=== PATIENT | male | born 1940 | race Caucasian/White ===

== ENCOUNTER 2025-09-01 10:35 | Observation (INO) | payer MEDICARE ==
[~2025-09-01] VITALS: Ht 167.6 cm; Wt 83.0 kg
--- NOTE | 2025-09-01 10:42 | ERN ---
ED Note History of Present Illness Stated Complaint: FLANK PAIN Chief Complaint: Flank Pain Time Seen by MD: 10:40 Dictation: PATIENT IS AN 84-YEAR-OLD MALE COMING IN TODAY WITH COMPLAINTS OF LEFT FLANK PAIN THAT RADIATES TO LEFT LOWER QUADRANT ONSET WAS FRIDAY. HE DENIES FEVER CHILLS NAUSEA VOMITING. DENIES ANY HISTORY OF PYELONEPHRITIS/UROLITHIASIS OR PANCREATITIS. HE HAS NOT BEEN TO SEE HIS PRIMARY CARE DOCTOR. RATES HIS PAIN 06/19. Allergies: Coded Allergies: Penicillins (Unverified Allergy, Unknown, 09/01/25) Past Medical History RN Note Reviewed/Agreed w/PFSH: Yes Review of System Dictation CONSTITUTIONAL: NEGATIVE EXCEPT FOR HPI HEAD/FACE: NEGATIVE EXCEPT FOR HPI EENT: NEGATIVE EXCEPT FOR HPI RESPIRATORY: NEGATIVE EXCEPT FOR HPI GASTROINTESTINAL/ABDOMINAL: NEGATIVE EXCEPT FOR HPI LEFT FLANK PAIN THAT RADIATES TO LEFT LOWER QUADRANT GENITOURINARY: NEGATIVE EXCEPT FOR HPI MUSCULOSKELETAL: NEGATIVE EXCEPT FOR HPI INTEGUMENTARY: NEGATIVE EXCEPT FOR HPI NEUROLOGICAL/PSYCH: NEGATIVE EXCEPT FOR HPI HEMATOLOGIC/LYMPHATIC: NEGATIVE EXCEPT FOR HPI ALL SYSTEMS NEGATIVE, EXCEPT NOTED ABOVE. 13 POINT REVIEW OF SYSTEMS ASSESSED AND ALL NEGATIVE EXCEPT FOR ABOVE. Initial Vital Sign VS Vital Signs Date Time Temp Pulse Resp B/P (MAP) Pulse Ox O2 Delivery O2 Flow Rate FiO2 09/01/25 10:40 97.2 58 16 150/68 99 0 09/01/25 11:09 Room Air* 21 Physical Exam Dictation VITAL SIGNS REVIEWED GENERAL APPEARANCE: ALERT, ORIENTED X 3, MODERATE ACUTE DISTRESS, WELL DEVELOPED, NOURISHED. HEAD AND FACE: NON-TRAUMATIC. EYES: PERRL, PINK CONJUNCTIVAS, EYELID NO TRAUMA, ANTERIOR CHAMBER WITH ARCUS SENILIS. EARS: PINNAS INTACT AND NO SIGNS OF TRAUMA OR ERYTHEMA EAR CANALS CLEAR AND NO DISCHARGE TM NO ERYTHEMA NOSE: NO DISCHARGE, NO BLEEDING. OROPHARYNX: MOUTH NORMAL, TONGUE PINK, PHARYNX CLEAR,NO ERYTHEMA, TONSILS NO EXUDATES, NO ABSCESSES NOTED, MUCOUS MEMBRANE MOIST NECK: SUPPLE, NON-TENDER, NO THYROMEGALY, NO MASSES, NO JVD, NO BRUITS BREAST:DEFERRED CHEST:NO TENDERNESS, NO CREPITUS, NO PARADOXICAL MOVEMENT, NO RETRACTIONS LUNGS:CLEAR, WELL-VENTILATED, SYMMETRIC, NO RALES, NO WHEEZING, NO RHONCHI, NO STRIDOR, GOOD BREATH SOUNDS BILATERALLY HEART: REGULAR RATE, REGULAR RHYTHM, NO MURMUR, NO GALLOPS VASCULAR: NO PERIPHERAL EDEMA, ABDOMEN: SOFT, POSITIVE BOWEL SOUNDS, NONDISTENDED, NO GUARDING, NONTENDER, NO REBOUND, NO MASSES NO HEPATOMEGALY, NO SPLENOMEGALY, NO CERVANTES'S SIGN, NO HERNIAS. NEGATIVE CVAT BILATERALLY RECTAL: DEFERRED GENITAL: DEFERRED NEUROLOGICAL: NORMAL SPEECH, MOTOR FUNCTION INTACT, SENSORY FUNCTION INTACT MUSCULOSKELETAL: NECK NONTENDER, FULL RANGE OF MOTION, BACK NONTENDER, FULL RANGE OF MOTION, EXTREMITIES: NONTENDER, FULL RANGE OF MOTION SKIN: COLOR PINK, DRY, NO TURGOR, NO RASH, NO LACERATIONS, NO ABRASIONS, NO CONTUSIONS. LYMPHATIC: DEFERRED Results (Laboratory/Radiology) Laboratory/Radiology Laboratory Tests Test 09/01/25 10:37 09/01/25 13:30 White Blood Count 6.0 K/uL (4.8-10.8) Red Blood Count 4.64 MIL/uL (4.50-6.20) Hemoglobin 13.0 g/dL (14.0-18.0) L Hematocrit 38.9 % (42-54) L Mean Corpuscular Volume 83.8 fL (79-99) Mean Corpuscular Hemoglobin 28.0 pg (27.0-33.0) Mean Corpuscular Hemoglobin Concent 33.4 g/dL (32.0-36.0) Red Cell Distribution Width 13.5 % (11.0-15.5) Platelet Count 193 K/uL (130-400) Mean Platelet Volume 10.5 fL (7.5-10.5) Immature Granulocyte % (Auto) 0.3 % (0-1) Neutrophils (%) (Auto) 58.4 % (40.0-77.0) Lymphocytes (%) (Auto) 26.7 % (21.0-51.0) Monocytes (%) (Auto) 6.3 % (3.0-13.0) Eosinophils (%) (Auto) 7.3 % (0.0-8.0) Basophils (%) (Auto) 1.0 % (0.0-5.0) Neutrophils # (Auto) 3.5 K/uL (1.8-7.7) Lymphocytes # (Auto) 1.6 K/uL (1.0-4.8) Monocytes # (Auto) 0.4 K/uL (0.1-1.0) Eosinophils # (Auto) 0.44 K/uL (0.00-0.70) Basophils # (Auto) 0.06 K/uL (0.00-0.20) Absolute Immature Granulocyte (auto 0.02 K/uL (0-1) Nucleated Red Blood Cells 0.0 % (0.0-0.19) Sodium Level 136 mmol/L (136-145) Potassium Level 4.4 mmol/L (3.5-5.1) Chloride Level 99 mmol/L (101-111) L Carbon Dioxide Level 27 mmol/L (21-32) Blood Urea Nitrogen 21 mg/dL (7-18) H Creatinine 1.0 mg/dL (0.5-1.3) Glomerular Filtration Rate Calc 73 mL/min (>90) Random Glucose 183 mg/dL (70-105) H Total Calcium 9.0 mg/dL (8.5-10.1) Lipase 55 U/L (16-77) Urine Color COLORLESS (YELLOW) Urine Appearance CLEAR (CLEAR) Urine pH 6.5 (5.0-8.0) Urine Specific [place] 1.006 (1.001-1.031) Urine Protein NEGATIVE mg/dL (NEGATIVE) Urine Glucose (UA) NEGATIVE mg/dL (NEGATIVE) Urine Ketones NEGATIVE mg/dL (NEGATIVE) Urine Occult Blood NEGATIVE (NEGATIVE) Urine Nitrate NEGATIVE (NEGATIVE) Urine Bilirubin NEGATIVE mg/dL (NEGATIVE) Urine Urobilinogen 0.2 mg/dL (0.2-1.0) Urine Leukocyte Esterase NEGATIVE [place]/uL GALLBLADDER AND BILE DUCTS: The gallbladder appears within normal limits. No radioopaque gallstones are seen. No biliary ductal dilatation is evident. PANCREAS: Diffuse fatty atrophy. SPLEEN: Multiple tiny calcified granulomas in the spleen. ADRENAL GLANDS: Unremarkable. KIDNEYS, URETERS, AND BLADDER: Multiple bilateral hypodense foci largest measuring 4.8 x 4.5 cm on the right side and 5.6 x 5.5 cm on the left side. Tiny hyperdense area measuring 9.0 mm in the left kidney. These may reflect simple and proteinaceous/hemorrhagic cyst; however would be better characterized with ultrasound on a nonemergent basis. Mild bilateral perinephric fat stranding is concerning for renal parenchymal disease. There is no hydronephrosis or hydroureter. No urinary calculi are seen. STOMACH AND BOWEL: Unremarkable appearance of the stomach and bowel. No evidence of bowel obstruction. No evidence suggesting enteritis or colitis. Left-sided inguinal hernia with fat as content. PERITONEUM: No free fluid. No free air. LYMPH NODES: No lymphadenopathy is evident. REPRODUCTIVE: Unremarkable as visualized. VASCULATURE: Atherosclerotic changes in the form of eccentric vessel wall calcification in the abdominal aorta and its major branches. No evidence of abdominal aortic aneurysm. BONES: Pedicle screw fixation at L4-L5 vertebral levels. Mild pseudolisthesis of L4 over L5 vertebra. Degenerative changes in the visualized spine in the form of marginal osteophytes and degenerative discs at multiple lumbar levels. No aggressive appearing osseous lesion. No acute osseous pathology evident. IMPRESSION: 1. Aneurysmal dilatation of the proximal ascending thoracic aorta, measuring up to 4.6 cm. 2. Multiple bilateral renal cysts, largest measuring 4.8 x 4.5 cm on the right and 5.6 x 5.5 cm on the left. 9.0 mm hyperdense focus in the left kidney, possibly representing a proteinaceous or hemorrhagic cyst. 3. Mild bilateral perinephric fat stranding, concerning for renal parenchymal disease. 4. Left-sided inguinal hernia containing fat. 5. No acute osseous abnormalities or other urgent findings. /[facility] Labs Reviewed?: Yes ED Course ED Course Orders Procedure Category Date Status Time Cbc With Differential LAB 09/01/25 Complete 10:40 Urinalysis Profile LAB 09/01/25 Complete 10:40 0.9%Nacl 1000ml (Ns PHA 09/01/25 Complete 1000ml) 11:00 Morphine 2mg Syg PHA 09/01/25 Complete (Morphine 2mg Syg) 11:00 Ondansetron 4mg Inj PHA 09/01/25 Complete (Zofran 4mg Inj) 11:00 Ct Abdomen/Pelvis W/O CT 09/01/25 Resulted Contrast 10:40 Lipase LAB 09/01/25 Complete 10:40 Basic Metabolic Panel LAB 09/01/25 Complete 10:40 Ketorolac PHA 09/01/25 Complete Tromethamine 15mg/Ml 11:30 Levofloxacin 500 PHA 09/01/25 In Process Mg/D5w 100 Ml 13:32 Current Medications Medications (Trade) Dose Ordered Sig/Varsha Route PRN Reason Start Time Stop Time Status Last Admin Dose Admin Ketorolac Tromethamine (toRADol) 15 mg ONCE ONCE IV 09/01/25 11:30 09/01/25 11:31 DC 09/01/25 12:09 Levofloxacin/ Dextrose 100 ml @ 100 mls/hr ONCE STAT IV 09/01/25 13:32 09/01/25 14:31 Morphine Sulfate (morPHINE 2MG SYG) 2 mg ONCE ONCE IVP 09/01/25 11:00 09/01/25 11:01 DC Ondansetron HCl (zoFRAN 4MG INJ) 4 mg ONCE ONCE IVP 09/01/25 11:00 09/01/25 11:01 DC 09/01/25 12:09 Sodium Chloride 1,000 ml @ 0 mls/hr ONCE ONCE IV 09/01/25 11:00 09/01/25 11:01 DC 09/01/25 12:10 Vital Signs Date Time Temp Pulse Resp B/P (MAP) Pulse Ox O2 Delivery O2 Flow Rate FiO2 09/01/25 11:09 98.2 78 20 162/83 97 Room Air* 0 21 09/01/25 10:40 97.2 58 16 150/68 99 0 1330/SPOKE WITH DR. BOSS VASCULAR SURGERY AND REVIEWED CT FINDINGS. HE STATES THAT THIS IS AN INCIDENTAL FINDING ONLY HOWEVER HE RECOMMEND PATIENT FOLLOW BACK UP WITH HIS EDUCATIONAL SPECIALIST'S FOR CONTINUED TO ALL EVALUATIONS, THAT IF IT WAS GREATER THAN 5.5 CM THEN IT WOULD INDICATE A NEED FOR SURGERY. FOLLOW UP OUTPATIENT PER DR. [id number]/ 1415/SPOKE WITH BERNARD PRADHAN HOSPITALIST REVIEWED LABS AND INTERVENTIONS FOR PAIN SHE AGREED TO ADMIT PATIENT. Medical Decision Making MDM MDM: DIFFERENTIAL DIAGNOSIS: ACS/AMI/UROLITHIASIS/PYELONEPHRITIS/YOUR COLIC/P ANCREATITIS/PNEUMONIA/BRONCHITIS RATIONALE: TESTS CONSIDERED AND ORDERED SECONDARY TO SHARED DECISION MAKING INCLUDE: LABS, ECG AND RADIOLOGY PREVIOUS OUTSIDE RECORDS REVIEWED: OLD ER VISITS. RISK OF COMPLICATION AND/OR MORBIDITY OR MORTALITY OF PATIENT MANAGEMENT: NONE MEDICATIONS-PER MEDICATION RECONCILIATION NEED FOR HOSPITALIZATION: PATIENT DOES MEET CRITERIA FOR HOSPITALIZATION. PATIENT WILL BE ADMITTED FOR ACUTE PARENCHYMAL DISEASE AND UROLOGY CONSULTATION INTRACTABLE ABDOMINAL PAIN PRESCRIPTION DRUG MANAGEMENT PRESCRIPTIONS WILL INCLUDE SYMPTOMATIC CARE PATIENT'S PRIOR EXTERNAL MEDICAL RECORDS FROM OTHER ER VISITS WERE REVIEWED BY ME INDICATED. PRIOR TESTING AND RESULTS FROM PREVIOUS VISITS WERE REVIEWED. PRIOR TESTS WERE TAKEN INTO ACCOUNT WITH MEDICAL DECISION MAKING AND RESOURCE UTILIZATION, INDEPENDENT HISTORIAN/HISTORIANS WERE USED TO OBTAIN COMPLETE MEDICAL HISTORY. I INDEPENDENTLY INTERPRETED THE TEST THAT WERE PERFORMED, RESULTS WERE REVIEWED BY ME AND CONSIDERED FINDINGS ON RADIOLOGY IF ORDERED. MEDICAL MANAGEMENT AND EXAMINATION INTERPRETATION DISCUSSIONS WERE HAD BY ME WITH OTHER QUALIFIED HEALTHCARE PROFESSIONALS INDICATED FOR THE PATIENT'S CARE. DX & DISP Disposition: Inpatient Decision to Admit Time: 14:16 Departure Impression: Primary Impression: Intractable abdominal pain Additional Impressions: Parenchymal disease of kidney, Hypochloremia, Uncontrolled diabetes mellitus, Aortic aneurysm Condition: Stable Time of Disposition: 14:16 I have reviewed the case, and I agree with, Diagnosis and Plan UTE ALONSO Sep 01, 2025 10:42
[2025-09-01 10:56] LABS: IMMATURE GRANULOCYTE ABSOLUTE 0.02 K/uL (0-1); NUCLEATED RED BLOOD CELLS 0.0 % (0.0-0.19); PLATELET COUNT (AUTO) 193 K/uL (130-400); RED BLOOD CELL COUNT(AUTO) 4.64 MIL/uL (4.50-6.20); RED CELL DISTRIBUTION WIDTH 13.5 % (11.0-15.5); WHITE BLOOD COUNT (AUTO) 6.0 K/uL (4.8-10.8)
[2025-09-01 11:11] LABS: CREATININE 1.0 mg/dL (0.5-1.3); GLOMERULAR FILTR. RATE CALC 73.0 mL/min (>90); GLUCOSE,RANDOM 183.0 mg/dL (70-105); SODIUM SERUM 136.0 mmol/L (136-145); UREA NITROGEN, BLOOD 21.0 mg/dL (7-18)
[2025-09-01] MEDS: 0.9%NACL 1000ML 1,000 ML IV ONE (12:10)
--- NOTE | 2025-09-01 12:18 | HMCIMG ---
EXAM: CT Abdomen and Pelvis Without IV contrast CLINICAL HISTORY: LEFT FLANK PAIN THAT RADIATES TO LEFT LOWER QUADRANT TECHNIQUE: Axial computed tomography images of the abdomen and pelvis without intravenous contrast. CONTRAST: No IV contrast. COMPARISON: None provided. FINDINGS: LUNG BASES: Mild centrilobular and paraseptal emphysematous changes in the right lower lobe. No pleural effusions are seen. Atherosclerosis of the coronary arteries and thoracic aorta. Aneurysmal dilatation of the proximal ascending thoracic aorta, measuring up to 4.[address] angiography of the chest for further evaluation. LIVER: Few tiny hypodense areas in the subcapsular region of the bilateral lobes. Suggested USG on a non-emergency basis. GALLBLADDER AND BILE DUCTS: The gallbladder appears within normal limits. No radioopaque gallstones are seen. No biliary ductal dilatation is evident. PANCREAS: Diffuse fatty atrophy. SPLEEN: Multiple tiny calcified granulomas in the spleen. ADRENAL GLANDS: Unremarkable. KIDNEYS, URETERS, AND BLADDER: Multiple bilateral hypodense foci largest measuring 4.8 x 4.5 cm on the right side and 5.6 x 5.5 cm on the left side. Tiny hyperdense area measuring 9.0 mm in the left kidney. These may reflect simple and proteinaceous/hemorrhagic cyst; however would be better characterized with ultrasound on a nonemergent basis. Mild bilateral perinephric fat stranding is concerning for renal parenchymal disease. There is no hydronephrosis or hydroureter. No urinary calculi are seen. STOMACH AND BOWEL: Unremarkable appearance of the stomach and bowel. No evidence of bowel obstruction. No evidence suggesting enteritis or colitis. Left-sided inguinal hernia with fat as content. PERITONEUM: No free fluid. No free air. LYMPH NODES: No lymphadenopathy is evident. REPRODUCTIVE: Unremarkable as visualized. VASCULATURE: Atherosclerotic changes in the form of eccentric vessel wall calcification in the abdominal aorta and its major branches. No evidence of abdominal aortic aneurysm. BONES: Pedicle screw fixation at L4-L5 vertebral levels. Mild pseudolisthesis of L4 over L5 vertebra. Degenerative changes in the visualized spine in the form of marginal osteophytes and degenerative discs at multiple lumbar levels. No aggressive appearing osseous lesion. No acute osseous pathology evident. IMPRESSION: 1. Aneurysmal dilatation of the proximal ascending thoracic aorta, measuring up to 4.6 cm. 2. Multiple bilateral renal cysts, largest measuring 4.8 x 4.5 cm on the right and 5.6 x 5.5 cm on the left. 9.0 mm hyperdense focus in the left kidney, possibly representing a proteinaceous or hemorrhagic cyst. 3. Mild bilateral perinephric fat stranding, concerning for renal parenchymal disease. 4. Left-sided inguinal hernia containing fat. 5. No acute osseous abnormalities or other urgent findings. /[place]
[2025-09-01 13:40] LABS: APPEARANCE,URINE CLEAR (CLEAR); GLUCOSE, URINE (UA) NEGATIVE (NEGATIVE); LEUKOCYTE ESTERASE ,URINE NEGATIVE Leu/uL (NEGATIVE); NITRATE,URINE NEGATIVE (NEGATIVE); OCCULT BLOOD,URINE NEGATIVE (NEGATIVE)
[2025-09-01 13:43] LABS: ADD UA MICROSCOPIC NO
--- NOTE | 2025-09-01 15:04 | NUR ---
DCP: HOME sw met with pt and son Danilo Rasmussen [phone]. Pt lives independently at home with his william Soto [phone]. Pt states he completes his ADLS on his own, uses a shower chair at home. Has no HH or HD services. PCP is Randi Pickens and uses the [facility] or [facility] for rx needs. Pt denies need for SNF, [place] at [place] Addendum: 09/01/25 at 1511 by ALEA QUEEN SS Amended: Links added.
[2025-09-01] MEDS ORDERED: MAGNESIUM 2GM PREMIX 50ML 50 ML IV PRN (15:30)
[2025-09-01] MEDS ORDERED: GLUCAGON 1MG KIT 1 MG ML IM PRN (15:30)
[2025-09-01] MEDS ORDERED: DEXTROSE 50%-WATER 50 ML DISP.SYRIN IV PRN (15:30)
--- NOTE | 2025-09-01 15:43 | HP ---
[facility] HISTORY AND PHYSICAL Date of Service: Sep 01, 2025 Time of Service: 15:34 HISTORY OF PRESENT ILLNESS: [The patient is an 84-year-old male presenting with left flank pain that began on Friday morning. The pain radiates to the left lower quadrant. He denies taking any medications for the pain. He reports no associated fever, chills, nausea, or vomiting. No dysuria, hematuria, or urinary frequency. No recent trauma or heavy lifting. No prior similar episodes. ] REVIEW OF SYSTEMS CONSTITUTIONAL: Denies fevers, chills, or night sweats. No unintentional weight loss reported. NEUROLOGICAL: Denies headache, amaurosis fugax, motor weakness, sensory deficit, vertigo/spinning sensation, gait abnormalities, or tremors. ENT: No hearing loss, otalgia, otorrhea, rhinitis, rhinorrhea, hoarseness, or sore throat. CARDIOVASCULAR: Denies any exertional angina, dyspnea on exertion, orthopnea, paroxysmal nocturnal dyspnea, palpitations, life-threatening arrhythmias, claudication. PULMONARY: Denies any shortness of breath, cough, phlegm/sputum, hemoptysis, pleuritic chest pain. SLEEP: Denies morning headaches, daytime somnolence or napping. Denies difficulty falling asleep, staying asleep, waking from sleep. Denies knowledge of snoring. GASTROINTESTINAL: Denies any type of dysphagia to either liquids or solids. Denies nausea, vomiting, pyrosis, early satiety, abdominal pain, diarrhea, constipation, or changes in stool consistency or caliber. Denies coffee-ground emesis, hematemesis, hematochezia, or melanotic stools. GENITOURINARY: Denies frequency, urgency, nocturia, hematuria or incontinence (Storage/Irritative symptoms.) Low urinary stream, straining to void, urinary intermittency or hesitancy, splitting of the voiding stream, terminal dribbling. ENDOCRINOLOGIC: Denies polyuria, polydipsia, polyphagia or heat/cold intolerances. HEMATOLOGIC: Denies thrombophilia/previous clots, or coagulopathy/bleeding disorders. ONCOLOGIC: Denies personal history of malignancy. DERMATOLOGIC: Denies rashes or pruritus. PSYCHIATRIC: Denies any suicidal or homicidal ideation. Denies hallucinations. PAST MEDICAL HISTORY: [Coronary artery disease Diabetes mellitus Hypertension Osteoarthritis Skin cancer ] PAST SURGICAL HISTORY: [ Tonsillectomy Right knee surgery Bilateral shoulder surgery Skin cancer excisions (nose, lips) Cataract surgery Left elbow I&D ] PAST SOCIAL HISTORY: [Retired Denies alcohol abuse Former smoker (age [age]) Denies illicit drug us ] FAMILY HISTORY: [ Skin cancer ] Coded Allergies: Penicillins (Unverified Allergy, Unknown, 09/01/25) PHYSICAL EXAM GENERAL APPEARANCE: The patient is awake, alert, and oriented, in no acute cardiopulmonary distress. NEUROLOGICAL: Cranial nerves II-XII grossly intact. Motor is 5/5 in bilateral upper and lower extremities proximal to distal. No sensory deficits. HEENT: Face is symmetric. Pupils are equal and reactive. Extraocular movements are intact. NECK: Supple. No JVD. No thyromegaly. No submental, submandibular, pre- /postauricular, occipital or supraclavicular lymphadenopathy. CHEST: Normal chest expansion. No Telemetry. LUNGS: Absence of any rales, rhonchi or any wheezing. CARDIOVASCULAR: Regular. S1 and S2 normal. No appreciable rubs, murmurs or gallops. ABDOMEN: Soft, nontender, and nondistended. There is no rebound, voluntary guarding, or rigidity. : Deferred. No [place]. EXTREMITIES: Non-edematous and not cyanotic. No clubbing. Good capillary refill. SKIN: No skin breakdown. Vital Sign (Last 24 Hours) 09/01/25 11:09 Temp 98.2 Pulse 78 Resp 20 B/P (MAP) 162/83 Pulse Ox 97 O2 Delivery Room Air* O2 Flow Rate 0 FiO2 21 LABS: Laboratory: Test 09/01/25 13:30 09/01/25 10:37 Range/Units Urine Color COLORLESS YELLOW Urine Appearance CLEAR CLEAR Urine pH 6.5 5.0-8.0 Urine Specific [place] 1.006 1.001-1.031 Urine Protein NEGATIVE NEGATIVE mg/dL Urine Glucose (UA) NEGATIVE NEGATIVE mg/dL Urine Ketones NEGATIVE NEGATIVE mg/dL Urine Occult Blood NEGATIVE NEGATIVE Urine Nitrate NEGATIVE NEGATIVE Urine Bilirubin NEGATIVE NEGATIVE mg/dL Urine Urobilinogen 0.2 0.2-1.0 mg/dL Urine Leukocyte Esterase NEGATIVE NEGATIVE [place]/uL White Blood Count 6.0 4.8-10.8 K/uL Red Blood Count 4.64 4.50-6.20 MIL/uL Hemoglobin 13.0 L 14.0-18.0 g/dL Hematocrit 38.9 L 42-54 % Mean Corpuscular Volume 83.8 79-99 fL Mean Corpuscular Hemoglobin 28.0 27.0-33.0 pg Mean Corpuscular Hemoglobin Concent 33.4 32.0-36.0 g/dL Red Cell Distribution Width 13.5 11.0-15.5 % Platelet Count 193 130-400 K/uL Mean Platelet Volume 10.5 7.5-10.5 fL Immature Granulocyte % (Auto) 0.3 0-1 % Neutrophils (%) (Auto) 58.4 40.0-77.0 % Lymphocytes (%) (Auto) 26.7 21.0-51.0 % Monocytes (%) (Auto) 6.3 3.0-13.0 % Eosinophils (%) (Auto) 7.3 0.0-8.0 % Basophils (%) (Auto) 1.0 0.0-5.0 % Neutrophils # (Auto) 3.5 1.8-7.7 K/uL Lymphocytes # (Auto) 1.6 1.0-4.8 K/uL Monocytes # (Auto) 0.4 0.1-1.0 K/uL Eosinophils # (Auto) 0.44 0.00-0.70 K/uL Basophils # (Auto) 0.06 0.00-0.20 K/uL Absolute Immature Granulocyte (auto 0.02 0-1 K/uL Nucleated Red Blood Cells 0.0 0.0-0.19 % Sodium Level 136 136-145 mmol/L Potassium Level 4.4 3.5-5.1 mmol/L Chloride Level 99 L 101-111 mmol/L Carbon Dioxide Level 27 21-32 mmol/L Blood Urea Nitrogen 21 H 7-18 mg/dL Creatinine 1.0 0.5-1.3 mg/dL Glomerular Filtration Rate Calc 73 >90 mL/min Random Glucose 183 H 70-105 mg/dL Total Calcium 9.0 8.5-10.1 mg/dL Lipase 55 16-77 U/L Current Medications Medications (Trade) Dose Ordered Sig/Varsha Route PRN Reason Start Time Stop Time Status Last Admin Dose Admin Dextrose (D50w) 50 ml AD PRN IV HYPOGLYCEMIA PROTOCOL 09/01/25 15:30 10/01/25 15:29 Glucagon (Glucagon 1mg Kit) 1 mg AD PRN IM HYPOGLYCEMIA PROTOCOL 09/01/25 15:30 10/01/25 15:29 Insulin Human Regular (humuLIN R 100 UNIT/ML 3ML) INSULIN SLIDING SCAL... ACHS SQ 09/01/25 16:30 10/01/25 16:29 Levofloxacin/ Dextrose 100 ml @ 100 mls/hr ONCE STAT IV 09/01/25 13:32 09/01/25 14:31 DC 09/01/25 14:25 100 MLS/HR Magnesium Sulfate 50 ml @ 0 mls/hr PROTOCOL PRN IV MAGNESIUM PROTOCOL 09/01/25 15:30 10/01/25 15:29 DIAGNOSTICS / RADIOLOGY: [IMAGING: CT Abdomen/Pelvis without contrast (09/01/2025): Aneurysmal dilatation of the proximal ascending thoracic aorta (4.6 cm) Multiple bilateral renal cysts (largest: 4.8 x 4.5 cm right, 5.6 x 5.5 cm left) 9 mm hyperdense focus in left kidney, possibly proteinaceous or hemorrhagic cyst Mild bilateral perinephric fat stranding, concerning for renal parenchymal disease No hydronephrosis, hydroureter, or urinary calculi Left-sided inguinal hernia with fat content Mild emphysematous changes in right lower lobe Degenerative changes in lumbar spine, L4-L5 pedicle screw fixation ] ASSESSMENT: [1. Left flank pain, radiating to left lower quadrant: No evidence of nephrolithiasis or hydronephrosis on imaging. Multiple bilateral renal cysts, including a hyperdense left renal cyst, and mild perinephric fat stranding suggest possible renal parenchymal disease or cyst- related discomfort. Musculoskeletal pain remains a consideration, especially with degenerative spine changes and history of osteoarthritis. No acute intra-abdominal or osseous pathology identified. 2. Incidental findings: Ascending thoracic aortic aneurysm (4.6 cm): Outpatient vascular surgery or cardiology referral for further evaluation (CT angiography recommended). ER provider spoke with Dr. Huggins, for now just monitor closely. Left inguinal hernia with fat content: No acute findings, monitor for symptoms. Multiple renal cysts: Recommend renal/bladder ultrasound for further characterization on a non-emergent basis. Mild emphysematous changes in right lower lobe: No acute pulmonary findings. 3. Chronic comorbidities: Coronary artery disease, diabetes, hypertension, osteoarthritis, history of skin cancer. ] PLAN: [Admit to medical floor Patient can have heart healthy diet Laboratory studies: Urinalysis with microscopy, Basic metabolic panel, CBC Imaging: Renal/bladder ultrasound (outpatient, non-emergent) for further cyst characterization Outpatient CT angiography of the chest for thoracic aortic aneurysm evaluation Symptom management: Acetaminophen for pain control. Encourage oral hydration as tolerated Monitoring: Monitor for new or worsening symptoms (fever, hematuria, dysuria, worsening pain, hernia symptoms). Monitor blood glucose and blood pressure Consultations: Outpatient vascular surgery or cardiology for aortic aneurysm. Urology referral if renal cysts become symptomatic or if ultrasound suggests complexity Patient education: Educate on signs/symptoms of aortic aneurysm complications, hernia incarceration, and renal cyst complications. Advise to seek care for acute changes Follow-up: Arrange outpatient follow-up for imaging and specialty referrals Continue home medications FULL CODE ADVANCED CARE PLANNING 1. Which of the following were discussed? Hospice Care - Yes / No Therapeutic options - Yes / No Advance Directives - Yes / No Other discussions - 2. Discussed with who? Patient 3. Voluntary nature of this service was explained to the patient? Yes / No 4. Amount of time spent - _20 mins 5. Reviewed by Physician? (if this service was performed by NPP) Yes / No ] ATTESTATION BY PHYSICIAN I have seen and examined the patient. I reviewed the documentation, medical decision making, and treatment plan as noted by the mid-level provider above. I agree with the findings and plan of care. GAMALIEL RODRIGUEZ MD, [facility] Sep 01, 2025 15:43
[2025-09-01 18:33] VITALS: O2SAT 97
[2025-09-01] MEDS ORDERED: SOTA80TA PO (19:14)
[2025-09-01] MEDS ORDERED: SOTA150V IV (19:14)
[2025-09-01] MEDS ORDERED: FURO20TA4 PO (19:14)
[2025-09-01] MEDS ORDERED: FOSI40TA71 PO (19:14)
[2025-09-01] MEDS ORDERED: AMLO-258 PO (19:14)
[2025-09-01] MEDS ORDERED: METF-444 PO (19:14)
[2025-09-01] MEDS ORDERED: ASPI-1197 PO (19:14)
[2025-09-01] MEDS ORDERED: SIMV-43 PO (19:14)
[2025-09-01] MEDS ORDERED: CHOL2000 PO (19:16)
[2025-09-01 20:00] VITALS: BP 133/80; PULSE 74; RESP 18
[2025-09-01] MEDS ORDERED: LISI40TA15 PO (21:38)
[2025-09-01] MEDS: LISINOPRIL 40 MG TABLET PO SCH (21:47)
[2025-09-02] VITALS: BP 117/64; PULSE 58; RESP 17
[2025-09-02 04:00] VITALS: BP 110/74; PULSE 52; RESP 17; TEMP 97.8
[2025-09-02 04:44] LABS: NUCLEATED RED BLOOD CELLS 0.0 % (0.0-0.19); PLATELET COUNT (AUTO) 143.0 K/uL (130-400); RED BLOOD CELL COUNT(AUTO) 3.46 MIL/uL (4.50-6.20); RED CELL DISTRIBUTION WIDTH 15.6 % (11.0-15.5); WHITE BLOOD COUNT (AUTO) 5.2 K/uL (4.8-10.8)
[2025-09-02 05:09] LABS: ASPARTATE AMINOTRANSFERASE 19.0 U/L (10-37); CREATININE 1.1 mg/dL (0.5-1.3); GLOMERULAR FILTR. RATE CALC 65.0 mL/min (>90); GLUCOSE,RANDOM 99.0 mg/dL (70-105); SODIUM SERUM 138.0 mmol/L (136-145); TOTAL PROTEIN, SERUM 5.8 g/dL (6.0-8.3); UREA NITROGEN, BLOOD 23.0 mg/dL (7-18)
[2025-09-02 08:00] VITALS: BP 118/60; PULSE 62; RESP 16; TEMP 98
[2025-09-02] MEDS ORDERED: LISINOPRIL 40 MG TABLET PO SCH (08:30)
[2025-09-02] MEDS: CHOLECALCIFEROL PO SCH (09:00)
[2025-09-02] MEDS: ASPIRIN 325MG TAB PO SCH (09:19)
[2025-09-02] MEDS: amLODIPine 5 MG TAB PO SCH (09:20)
[2025-09-02 09:27] VITALS: O2SAT 97
[2025-09-02] MEDS: LIDOCAINE 4% ADH..PATCH TP ONE (11:31)
[2025-09-02 12:00] VITALS: BP 137/78; PULSE 65; RESP 17; TEMP 97.8
[2025-09-02] MEDS ORDERED: BACL10TA PO (13:00)
[2025-09-02] MEDS: BACLOFEN 10 MG TABLET PO SCH (14:00)
--- NOTE | 2025-09-02 14:15 | NUR ---
DISCHARGED PATIENT WAS EDUCATED ON NEW MEDICATION UPON DISCHARGED. PATIENT VERBALIZED UNDERSTANDING. IV WAS REMOVED WITHOUT COMPLICATIONS. PATIENT VERBALIZED NOT NEEDING FURTHER ASSISTANCE. PT WAS TRANSPORTED TO MAIN ENTRANCE VIA W/C BY RN CHEMICAL DEPENDENCY. NO S/S OF DISTRESS.
--- NOTE | 2025-09-02 15:49 | DS ---
Discharge Summary Hospital Course Summary: The patient is an 84-year-old male with past medical history of coronary artery disease, diabetes mellitus, hypertension, osteoarthritis and skin cancer. The patient came with complaint of left lower abdominal pain that started on Friday. According the patient, the pain initially started at the back which he consider was the usual back pain the patient has but gradually the pain worsened and radiated to the left lower quadrant that prompted him to come to the ER. The pain was not associated with fever, chills, vomiting, nausea, diarrhea, dysuria, frequency, urgency, constipation, chest pain, shortness of breath. 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 Multiple bilateral renal cysts, largest measuring 4.8 x 4.5 cm on the right and 5.6 x 5.5 cm on the left. 9.0 mm hyperdense focus in the left kidney, possibly representing a proteinace ous or hemorrhagic cyst. As per the patient's history and physical note, the ER providers contacted the fruit packer was recommended to monitor the patient closely for the aortic aneurysm. Today the patient was seen and examined. The patient complained of no pain as of today and was able to walk, eat, urinate and defecate. The patient complained of slight pain on the left lower quadrant, mainly on the back after which the patient was given a lidocaine patch and baclofen. The patient was educated regarding the CT findings with recommendations to follow up with Cardiology and Urology for a possible renal/bladder ultrasound for further assistance catheterization and possible CT Angiography for the ascending thoracic aortic aneurysm (4.6 cm). The patient responded with the understanding of these recommendations. On discharge the patient was stable and was complaining of no pain. He was discharged with baclofen t.i.d. Procedure(s): IMAGING REPORT Signed PATIENT: JAZMINE MAYORGA MR#: [id number] : 1940 SEX: M AGE: 84 LOCATION: [facility] ORDER [id number] STATUS: REG ER REPORT#: [id number] SERVICE [id number] REASON: LEFT FLANK PAIN THAT RADIATES TO LEFT LOWER QUADRANT ORDERING PHYSICIAN: RHEINER,UTE P BEAMER HELPER PROCEDURE: ABD PEL WO - CT ABDOMEN/PELVIS W/O CONTRAST EXAM: CT Abdomen and Pelvis Without IV contrast CLINICAL HISTORY: LEFT FLANK PAIN THAT RADIATES TO LEFT LOWER QUADRANT TECHNIQUE: Axial computed tomography images of the abdomen and pelvis without intravenous contrast. CONTRAST: No IV contrast. COMPARISON: None provided. FINDINGS: LUNG BASES: Mild centrilobular and paraseptal emphysematous changes in the right lower lobe. No pleural effusions are seen. Atherosclerosis of the coronary arteries and thoracic aorta. Aneurysmal dilatation of the proximal ascending thoracic aorta, measuring up to 4.[address] angiography of the chest for further evaluation. LIVER: Few tiny hypodense areas in the subcapsular region of the bilateral lobes. Suggested USG on a non-emergency basis. GALLBLADDER AND BILE DUCTS: The gallbladder appears within normal limits. No radioopaque gallstones are seen. No biliary ductal dilatation is evident. PANCREAS: Diffuse fatty atrophy. SPLEEN: Multiple tiny calcified granulomas in the spleen. ADRENAL GLANDS: Unremarkable. KIDNEYS, URETERS, AND BLADDER: Multiple bilateral hypodense foci largest measuring 4.8 x 4.5 cm on the right side and 5.6 x 5.5 cm on the left side. Tiny hyperdense area measuring 9.0 mm in the left kidney. These may reflect simple and proteinaceous/hemorrhagic cyst; however would be better characterized with ultrasound on a nonemergent basis. Mild bilateral perinephric fat stranding is concerning for renal parenchymal disease. There is no hydronephrosis or hydroureter. No urinary calculi are seen. STOMACH AND BOWEL: Unremarkable appearance of the stomach and bowel. No evidence of bowel obstruction. No evidence suggesting enteritis or colitis. Left-sided inguinal hernia with fat as content. PERITONEUM: No free fluid. No free air. LYMPH NODES: No lymphadenopathy is evident. REPRODUCTIVE: Unremarkable as visualized. VASCULATURE: Atherosclerotic changes in the form of eccentric vessel wall calcification in the abdominal aorta and its major branches. No evidence of abdominal aortic aneurysm. BONES: Pedicle screw fixation at L4-L5 vertebral levels. Mild pseudolisthesis of L4 over L5 vertebra. Degenerative changes in the visualized spine in the form of marginal osteophytes and degenerative discs at multiple lumbar levels. No aggressive appearing osseous lesion. No acute osseous pathology evident. IMPRESSION: 1. Aneurysmal dilatation of the proximal ascending thoracic aorta, measuring up to 4.6 cm. 2. Multiple bilateral renal cysts, largest measuring 4.8 x 4.5 cm on the right and 5.6 x 5.5 cm on the left. 9.0 mm hyperdense focus in the left kidney, possibly representing a proteinaceous or hemorrhagic cyst. 3. Mild bilateral perinephric fat stranding, concerning for renal parenchymal disease. 4. Left-sided inguinal hernia containing fat. 5. No acute osseous abnormalities or other urgent findings. /[place] DICTATED BY: NADIA YOU Jr., MD DATE: 09/01/251316 ELECTRONICALLY SIGNED BY: NADIA YOU Jr., MD DATE: 09/01/251316 Assessment/Plan: ASSESSMENT: [1. Left flank pain, radiating to left lower quadrant: No evidence of nephrolithiasis or hydronephrosis on imaging. Multiple bilateral renal cysts, including a hyperdense left renal cyst, and mild perinephric fat stranding suggest possible renal parenchymal disease or cyst- related discomfort. Musculoskeletal pain remains a consideration, especially with degenerative spine changes and history of osteoarthritis. No acute intra-abdominal or osseous pathology identified. 2. Incidental findings: Ascending thoracic aortic aneurysm (4.6 cm): Outpatient vascular surgery or cardiology referral for further evaluation (CT angiography recommended). ER provider spoke with Dr. Huggins, for now just monitor closely. Left inguinal hernia with fat content: No acute findings, monitor for symptoms. Multiple renal cysts: Recommend renal/bladder ultrasound for further characterization on a non-emergent basis. Mild emphysematous changes in right lower lobe: No acute pulmonary findings. Discharge Instructions: *Follow up with your primary care physician in 2 - 3 days after discharge. *Follow up with Cardiology for thoracic aortic aneurysm of 4.6 cm *Follow up with Urology for renal cysts *Continue all medications as prescribed. Do not discontinue or change dosages without consulting your PCP. *Gradually resume normal activities as tolerated. *Continue a balanced diet . Reduce salt intake to help manage BP. *Seek immediate medical attention if you experience chest pain, SOB or severe headache. Home Medications: Active Scripts Baclofen (Baclofen) 10 Mg Tablet, 1 TAB PO TID for 30 Days, #90 TAB 0 Refills Prov:NAT YANES MD 09/02/25 Reported Medications Lisinopril (Lisinopril) 40 Mg Tablet, 40 TAB PO ONCE for 30 Days, #30 TAB 0 Refills 09/01/25 Cholecalciferol (Vitamin D3) (Vitamin D3) 50 Mcg (2000 Unit) Capsule, 1 CAP PO DAILY for 30 Days, #30 CAP 0 Refills 09/01/25 Simvastatin (Simvastatin) 20 Mg Tablet, 20 MG PO HS, TAB 09/01/25 Fosinopril Sodium (Fosinopril Sodium) 40 Mg Tablet, 1 TAB PO BID for 30 Days, #30 TAB 0 Refills 09/01/25 Sotalol HCl (Sotalol) 80 Mg Tablet, 40 MG PO BID, TAB 09/01/25 Amlodipine Besylate (Amlodipine Besylate) 10 Mg Tablet, 10 MG PO DAILY for 30 Days, #30 TAB 0 Refills 09/01/25 Metformin HCl (Metformin HCl) 500 Mg Tablet, 500 MG PO BID, TAB 09/01/25 Furosemide (Furosemide) 20 Mg Tablet, 20 MG PO DAILY, TAB 09/01/25 Aspirin (Aspirin) 81 Mg Tab.chew, 325 MG PO DAILY, TAB.CHEW 09/01/25 Discontinued Reported Medications Sotalol HCl (Sotalol HCl) 150 Mg/10 Ml (15 Mg/Ml) Vial, 40 MG IV BID, VIAL 09/01/25 New Medications: Baclofen (Baclofen) 10 Mg Tablet 1 TAB PO TID for 30 Days, #90 TAB 0 Refills Continued Medications: Amlodipine Besylate (Amlodipine Besylate) 10 Mg Tablet 10 MG PO DAILY for 30 Days, #30 TAB 0 Refills Aspirin (Aspirin) 81 Mg Tab.chew 325 MG PO DAILY, TAB.CHEW Cholecalciferol (Vitamin D3) (Vitamin D3) 50 Mcg (2000 Unit) Capsule 1 CAP PO DAILY for 30 Days, #30 CAP 0 Refills Fosinopril Sodium (Fosinopril Sodium) 40 Mg Tablet 1 TAB PO BID for 30 Days, #30 TAB 0 Refills Furosemide (Furosemide) 20 Mg Tablet 20 MG PO DAILY, TAB Lisinopril (Lisinopril) 40 Mg Tablet 40 TAB PO ONCE for 30 Days, #30 TAB 0 Refills Metformin HCl (Metformin HCl) 500 Mg Tablet 500 MG PO BID, TAB Simvastatin (Simvastatin) 20 Mg Tablet 20 MG PO HS, TAB Sotalol HCl (Sotalol) 80 Mg Tablet 40 MG PO BID, TAB Time spent arranging discharge: 1-30 minutes ATTESTATION BY PHYSICIAN I have seen and examined the patient. I reviewed the documentation, medical decision making, and treatment plan as noted by the resident physician above. I agree with the findings and plan of care. Pérez Giron MD, SYED M MD Sep 02, 2025 15:49
== END 2025-09-02 14:15 | disposition home or self-care (01) ==
LOC: EDH 10:35 → EDHIP 15:12 → 4DH 17:45
PROVIDERS: ADMIT Internal Medicine; ATTEND Internal Medicine
DX: R10.32 Left lower quadrant pain (principal); K40.90 Unilateral inguinal hernia, without obstruction or gangrene, not specified as recurrent; E11.65 Type 2 diabetes mellitus with hyperglycemia; N28.1 Cyst of kidney, acquired; I71.9 Aortic aneurysm of unspecified site, without rupture; I25.10 Atherosclerotic heart disease of native coronary artery without angina pectoris; I10 Essential (primary) hypertension; E87.8 Other disorders of electrolyte and fluid balance, not elsewhere classified; M47.9 Spondylosis, unspecified; Z87.891 Personal history of nicotine dependence; Z85.828 Personal history of other malignant neoplasm of skin; Z79.899 Other long term (current) drug therapy; Z98.890 Other specified postprocedural states
CPT/HCPCS: 96365; 96375; 99285; 80048; 83690; 85025; 82948 ×4; 81003; 36415 ×2; 74176; 83735; 80053; 85027; G0378 ×23; J1956; J7030; J2405; J1885

== ENCOUNTER → 2025-10-31 | Outpatient (CLI) | payer MEDICARE ==
[~2025-10-31] MED LIST: AMLO-258 PO; ASPI-1197 PO; BACL10TA PO; CHOL2000 PO; FOSI40TA71 PO; FURO20TA4 PO; LISI40TA15 PO; METF-444 PO; SIMV-43 PO; SOTA80TA PO
--- NOTE | 2025-10-31 22:20 | HMCIMG ---
CT CHEST WITHOUT CONTRAST Clinical Data: Evaluation for aneurysm of the ascending aorta. Technique: Axial CT images of the chest were obtained without intravenous contrast. Reformatted coronal and sagittal images were generated. Radiation Dose: CTDIvol: 7.20 mGy DLP: 268.6 mGycm Prior Studies: Chest radiograph dated April 16, 2010, demonstrated unfolding of the thoracic aortic arch. CT abdomen and pelvis dated September 01, 2025, demonstrated multiple calcified splenic and hepatic granulomas and left renal cyst.Findings: Lungs: Minimal fibroatelectatic scarring in the right middle lobe and lingula. Small thin-walled cystic lesion in the posterior segment of the right upper lobe measuring 5 x 2.5 x 3.6 cm. No solid contents in it. Minimal right apical pleuroparenchymal scarring. Soft Tissues / Joints: Bilateral total shoulder arthroplasty status with appropriate morphology and hardware position. Vascular: Ascending aorta measures 5.2 cm, consistent with aneurysmal dilatation without evidence of rupture. Descending thoracic aorta measures 2.9 cm proximally and 2.6 cm distally. Atheromatous calcifications present in the aortic arch and coronary arteries. Mediastinum: No significantly enlarged mediastinal lymphadenopathy or mass. Cardiac size unremarkable. Upper Abdomen (visualized): Multiple calcified splenic nodules, suggestive of granulomas. Multiple small hepatic hypodensities, too small to characterize, and a few calcified hepatic granulomas. Left renal cyst measuring 5 cm. Diaphragm: Left hemidiaphragm elevated. Osseous Structures: Degenerative changes in the spine.Impression: * Aneurysmal dilatation of the ascending aorta measuring 5.2 cm, without evidence of rupture. * Multiple calcified splenic and hepatic granulomas; multiple small hepatic hypodensities. * Left renal cyst measuring 5 cm, stable. * Right upper lobe thin-walled cystic lesion measuring 5 x 2.5 cm. Minimal fibroatelectatic scarring in right middle lobe and lingula. * There are no areas of consolidation or pleural effusions, similar to the prior chest radiograph dated April 16, 2010. The multiple calcified splenic and hepatic granulomas and the left renal cysts are stable since prior CT scan of the abdomen/pelvis dated September 01, 2025. /[place]
== END | disposition home or self-care (01) ==
LOC: RAH 10:33
PROVIDERS: ATTEND Internal Medicine Cardiovascular Disease
DX: I71.21 Aneurysm of the ascending aorta, without rupture (principal); K75.3 Granulomatous hepatitis, not elsewhere classified; N28.1 Cyst of kidney, acquired; M47.814 Spondylosis without myelopathy or radiculopathy, thoracic region; I70.0 Atherosclerosis of aorta; D73.89 Other diseases of spleen
CPT/HCPCS: 71250